=== PATIENT | female | born 1935 | race Caucasian/White ===

== ENCOUNTER 2019-07-30 10:33 | Outpatient (CLI) | payer OTHER ==
[2019-07-30 12:10] LABS: CHOLESTEROL 200 mg/dL (<200); HDL CHOLESTEROL 70 mg/dL (>55); LDL CHOLESTEROL 97 mg/dL (<100); TRIGLYCERIDES 113 mg/dL (30-150)
== END 2019-07-30 20:23 | disposition home or self-care (01) ==
LOC: SLB 10:33
PROVIDERS: ATTEND Psychiatry & Neurology Psychiatry
DX: Z00.00 Encounter for general adult medical examination without abnormal findings (principal)
CPT/HCPCS: 36415; 80061; 83036; 87081